=== PATIENT | female | born 1985 | race Caucasian/White ===

== ENCOUNTER → 2019-04-09 12:37 | Outpatient (POV) | payer BC, SELFPAY | PROVIDERS: Visit Provider Dermatology | DX: Z00.00 Encounter for general adult medical examination without abnormal findings (principal) ==

== ENCOUNTER 2023-04-14 13:36 | Outpatient (CLI) | payer BC, SELFPAY ==
--- NOTE | 2023-04-14 13:36 | US_ITS ---
PROCEDURE: US TRANSVAGINAL CLINICAL INDICATION: abnormal uterine bleeding post ablation COMPARISON: No exams were available for comparison FINDINGS: Transvaginal sonographic images of the pelvis were obtained. UTERUS: 8.2cm x 5.2cmx 3.8cm anteverted with a combined endometrial thickness of 6.4mm. There is a fibroid on the right side of the uterus measuring 2.1 cm x 2.0 cm x 1.9 cm. A scar is present. LEFT OVARY: 2.2cmx1.6 cmx2.0cm with a volume of 3.5ml. There is a follicle measuring 1.6 cm x 0.7 cm x 1.0 cm. RIGHT OVARY: 2.7 cmx 2.1cmx1.6 cm with a volume of 4.9ml. There is a follicle measuring 1.4 cm x 1.4 cm x 1.4 cm. Both ovaries are seen and appear normal. Doppler flow to both ovaries are seen. There is no fluid in the cul-de-sac. IMPRESSION: 1. Anteverted uterus with a thin endometrium. A 2 cm fibroid is located on the right side of the uterus within the myometrium. 2. Both ovaries are seen and appear normal. 3. No fluid in the cul-de-sac. Dictated by: Lonny Kendall MD 04/15/2023 12:37 Lonny Kendall MD in OV 04/15/2023 12:37
== END 2023-04-14 23:59 ==
LOC: RAD 13:36
PROVIDERS: PCP Pediatrics; Visit Provider Obstetrics & Gynecology
DX: N93.8 Other specified abnormal uterine and vaginal bleeding (principal)
CPT/HCPCS: 76830

== ENCOUNTER 2023-05-31 12:53 | Emergency (ER) | payer BC, SELFPAY ==
--- NOTE | 2023-05-31 13:00 | XR_ITS ---
FINAL REPORT CLINICAL HISTORY: pain after fall yesterday COMPARISON: None FINDINGS: AP, oblique, and lateral views of the left elbow were obtained. There is no prior exam for comparison. There is no acute fracture or dislocation. Joint space is preserved. There is no joint effusion or other soft tissue abnormality. IMPRESSION: No acute osseous abnormality of the left elbow. Reviewed, Interpreted and Dictated by Roberto Bhardwaj III, MD Transcribed by Margot Riley Authenticated and [facility]
--- NOTE | 2023-05-31 13:00 | XR_ITS ---
FINAL REPORT CLINICAL HISTORY: pain after fall yesterday COMPARISON: None FINDINGS: AP and lateral views of the left forearm are obtained. There is no prior exam for comparison. There is no acute osseous abnormality of the left forearm. The wrist and elbow are intact. The soft tissues appear normal. IMPRESSION: No acute osseous abnormality of the left forearm. Reviewed, Interpreted and Dictated by Roberto Bhardwaj III, MD Transcribed by Margot Riley Authenticated and . [facility]
[2023-05-31 13:30] VITALS: BP 154/89; PULSE 89; RESP 18; TEMP 36.6; O2SAT 100; BMI 25.7
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
[2023-05-31 14:28] VITALS: BP 154/89; PULSE 89; RESP 18; TEMP 36.6; O2SAT 100
== END 2023-05-31 14:28 | disposition home or self-care (01) ==
PROVIDERS: Emergency Provider Nurse Practitioner Family
DX: M25.522 Pain in left elbow (principal); M79.632 Pain in left forearm; S50.02XA Contusion of left elbow, initial encounter; S50.12XA Contusion of left forearm, initial encounter; W04.XXXA Fall while being carried or supported by other persons, initial encounter
CPT/HCPCS: 73080; 73090; 99204; 99212; G0463

== ENCOUNTER 2024-01-24 13:32 | Outpatient (CLI) | payer BC, SELFPAY ==
--- NOTE | 2024-01-24 13:33 | MM_ITS ---
PROCEDURE INFORMATION: Exam: Bilateral Screening 3D Mammography Exam date and time: 01/24/2024 1:20 PM Age: 38 years old Clinical indication: Screening examination. TECHNIQUE: Imaging protocol: Bilateral Screening tomosynthesis and 2D mammography including computer-aided detection (CAD) when performed. COMPARISON: No relevant prior studies available. FINDINGS: MAMMOGRAPHY: Breast composition: The breasts are heterogeneously dense, which may obscure small masses. Mass: None. Architectural distortion: None. Calcifications: No suspicious calcifications. Asymmetric density: None. Skin thickening: None. Axillary adenopathy: None. IMPRESSION: No mammographic evidence of malignancy. Annual screening is recommended unless otherwise clinically indicated. ASSESSMENT: BI-RADS Category 1: Negative.
== END 2024-01-24 23:59 | disposition home or self-care (01) ==
LOC: RAD 13:33
PROVIDERS: PCP Obstetrics & Gynecology; Visit Provider Obstetrics & Gynecology
DX: Z12.31 Encounter for screening mammogram for malignant neoplasm of breast (principal)
CPT/HCPCS: 77063; 77067

== ENCOUNTER 2024-04-24 12:57 | Emergency (ER) | payer BC, SELFPAY ==
[2024-04-24 14:35] VITALS: BP 130/80; PULSE 71; RESP 19; TEMP 36.7; O2SAT 99; BMI 24.0
--- NOTE | 2024-04-24 14:52 | ED_ITS ---
Discharge Plan Disposition Patient Disposition: Home, Self-Care Condition: Good Prescriptions Prescriptions: New doxycycline hyclate 100 mg capsule 100 mg PO BID Qty: 20 0RF erythromycin 5 mg/gram (0.5 %) ointment 0.5 inch ophthalmic (eye) TID Qty: 3.5 0RF Rx Instructions: apply small ribbon in right eye as directed Referrals Follow up/Referrals: Dejan Mcdowell [Primary Care Provider] - See instructions Activity Restrictions/Add. Instructions Additional Instructions/Restrictions: Apply warm compresses to eye 3-4 times daily Clean eyelid with warm water and baby shampoo Follow up with your Eye Doctor if no improvement or any worsening of symptoms Straight to ER if any life threatening symptoms Clinical Impressions Clinical Impression: Hordeolum Instructions Patient Instructions: DI for Hordeolum, Doxycycline, Erythromycin Print Language Print Language: Belarusian Discharge ED Provider: Magaly French [facility] HPI General Stated complaint: swelling/redness/pain around right eye Mode of Arrival: Ambulatory Source of Information: Patient Limitations: No Limitations Time Seen by Provider: 04/24/24 14:52 Description of Symptoms (Recalled from Triage Doc. by RN): PATIENT C/O PAIN AND SWELLING TO RIGHT EYE SINCE YESTERDAY MORNING HEENT Symptoms (Recalled from RN notes): Yes Resp Symptoms (Recalled from RN notes): No Skin Symptoms (Recalled from RN notes): No MS Symptoms (Recalled from RN notes): No Functional Status (Recalled from RN notes): WNL History of Present Illness Provider Complaint: Patient states that she has had styes in the past, states that she noticed yesterday that her right eyelid was looking red and puffy and sore States that she did not see a bump but noticed it was looking more red and puffy today worried the infection may be spreading Related Data Previous Rx's ?Medication ?Instructions ?Recorded doxycycline hyclate 100 mg capsule 100 mg PO BID #20 caps 04/24/24 erythromycin 5 mg/gram (0.5 %) eye 0.5 inch ophthalmic (eye) TID #3.5 04/24/24 ointment grams Allergies Allergy/AdvReac Type Severity Reaction Status Date / Time No Known Allergies Allergy Verified 05/31/23 14:00 Worker's Comp Is this a Worker's Comp case?: No [facility] Disclaimer: The information contained in this section may have been updated after the patient was seen, as this information can be updated by other users. 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) Travel in the last 8 weeks: None household members: spouse Have you lived/traveled outside US in past 30 days?: No Contact w/someone who lives/traveled outside US past 30 days?: No Exposure to someone with infectious disease in past 14 days?: No Do you have a fever (greater than 100.4 F or 38 C)?: No Have you tested positive for COVID-19: No Exposed to someone with COVID-19 in past 14 days?: No Do you have a sore throat?: No Do you have a cough?: No Do you have any weakness?: No Do you have any diarrhea?: No Are you experiencing any unusual bleeding?: No Do you have any muscle aches/pain?: No Do you have any abdominal pain?: No Are you experiencing loss of taste or smell?: No ROS Obtained: Yes All systems reviewed & no additional complaints except as documented and Yes Systems reviewed as appropriate & no additional complaints except as documented Constitutional Constitutional: Reports system reviewed and no additional complaints, except as documented and Reports as per HPI Eyes Eyes: Reports system reviewed and no additional complaints, except as documented, Reports as per HPI and Reports other (redness, mild swelling to right upper eyelid area ) ENT Ears, Nose, Mouth, and Throat: Reports system reviewed and no additional complaints, except as documented and Reports as per HPI Physical Exam General General appearance: alert and in no apparent distress Eye Eye exam: Present other (redness noted to right upper eyelid and side of eye, appears possibly small bump like lesion starting) Respiratory Respiratory exam: Present normal lung sounds bilaterally; Absent respiratory distress or wheezes Cardiovascular Cardiovascular exam: Present regular rate, normal rhythm and normal heart sounds Neurological Exam Neurological exam: Present alert, oriented X3 and normal gait Medical Decision Making Medical Records Screening: Per USPSTF and CDC recommendations, given the prevalence of disease in our region, it is our hospital?s policy to screen for HIV and viral Hepatitis for all patients aged 18 and over and those with ongoing risk factors. Balbir Inquiry Pt receiving controlled substance: No Balbir was queried for this patient: No Vital Signs: 04/24/24 14:35 Temperature 98.0 F Temperature Source Oral Pulse Rate [Left Brachial] 71 Respiratory Rate 19 Blood Pressure [Left Arm] 130/80 Blood Pressure Mean [Left Arm] 96 Blood Pressure Source [Left Arm] Automatic Cuff Blood Pressure Position [Left Arm] Sitting 02 Sat by Pulse Oximetry 99 Oxygen Delivery Method Room Air
[2024-04-24 15:06] VITALS: BP 130/80; PULSE 71; RESP 19; TEMP 36.7; O2SAT 99
== END 2024-04-24 15:07 | disposition home or self-care (01) ==
PROVIDERS: Emergency Provider Nurse Practitioner; PCP Pediatrics
DX: H00.013 Hordeolum externum right eye, unspecified eyelid (principal)
CPT/HCPCS: 99213; G0381

== ENCOUNTER 2024-11-09 14:19 | Outpatient (CLI) | payer BC, SELFPAY ==
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
--- OUTSIDE RECORDS SUMMARY | 2024-11-09 14:23 | XMS_ITS | Clinical Summary ---
Author Organization [facility] Address [address] [place] [address] Phone Care Team Providers Care Electronic Sales And Service Technician Name Role Phone Dejan Mcdowell MD Primary Care Provider [phone] Allergies No known active allergies Medications No known medications Active Problems Problem Noted Date Diagnosed Date S/P endometrial ablation 08/16/2013 DUB (dysfunctional uterine bleeding) 06/03/2013 Anemia 10/21/2011 Abnormal vaginal Pap smear 2010 Overview (11/16/2010): Date Procedure Result Recommendation 10/05/10 Pap Lsil Colpo 11/10/10 Colpo Lsil Repeat pap in 4 months (02/27) LGSIL (low grade squamous intraepithelial dyspla callum) 2010 Resolved Problems Problem Noted Date Diagnosed Date Resolved Date Thrombocytopenia 10/22/2011 05/13/2015 Polyhydramnios 10/10/2011 10/21/2011 Overview (10/10/2011): Twin B Dichorionic diamniotic twin 06/08/2011 10/21/2011 Immunizations Immunization Administration Dates Next Due DT 11/17/1992 DTaP 10/30/1987, 6,02/03/1984,01/03/1984, HiB, Unspecified Formulation 12/17/1985 MMR 08/19/1991,02/05/1985 OPV 08/19/1991, 7,07/10/1985,02/03/1984, Td, Unspecified Formulation 12/19/2002 Tdap 10/29/2018,10/22/2011 Surgical History Surgery Date Site/Laterality Comments COLPOSCOPY 09/2010 IUD REMOVAL SECTION 10/19/2011 - 10/20/2011 Abdomen/N/A PRIMARY SECTION - TWINS (39 WKS) Low transverse uterine incision at 2314; Surgeon: Bernardo Weber MD; Location: [facility]; Service: Gynecology WISDOM TOOTH EXTRACTION ENDOMETRIAL ABLATION 07/17/2013 N/A HYSTEROSCOPY DILATION & CURETTAGE ENDOMETRIAL ABLATION WITH NOVASURE ; Surgeon: Junior Cerrato MD; Location: [facility]; Service: Gynecology Medical History Medical History Date Comments Twin 06/08/2011 Anemia 10/21/2011 Family History Medical History Relation Name Comments Anesth Problems Neg Hx Relation Name Status Comments Father Alive Mother Social History Tobacco Use Types Packs/Day Years Used Date Smoking Tobacco: Never Smokeless Tobacco: Never Tobacco Cessation:Counseling Given: No Alcohol Use Standard Drinks/Week Comments No 0 (1 standard drink = 0.6 oz pur e alcohol) PHQ-2 Answer Date Recorded PHQ-2 Total Score 0 08/11/2023 Sexually Active Control Partners Comments Yes Male Comments No Sex and Gender Information Value Date Recorded Sex Assigned at Not on file Legal Sex Female 5:17 AM EDT Gender Identity Not on file Sexual Orientation Not on file Obstetrics History Para Term AB IAB SAB Ectopic Multiple Livin g Live Births 1 1 1 0 0 0 0 0 1 2 2 Date Outcome GA Total Labor Labor/2nd/3rd Weight Sex Type Anes PTL Nela A1 A5 Name Clin 012 Term 37w 2d 5 lb 11.4 oz (2.591 kg) F CS-LT ranv Spinal N Livin g 8 9 VOET, LESLEY BABY A Rafi James MD Delivery Location:[facility] 012 Term 37w 2d 6 lb 8.8 oz (2.97 kg) F CS-LT ranv Spinal N Livin g 8 9 VOET, LESLEY BABY B Rafi James MD Delivery Location:[facility] Last Filed Vital Signs Vital Sign Reading Time Taken Comments Blood Pressure 118/76 08/11/2023 1:03 PM EDT Pulse 84 08/11/2023 1:03 PM EDT Temperature 36.6 C (97.8 F) 08/11/2023 1:03 PM EDT Respiratory Rate 18 08/11/2023 1:03 PM EDT Oxygen Saturation 99% 08/11/2023 1:03 PM EDT Inhaled Oxygen Concentration - - Weight 64.9 kg (143 lb) 08/11/2023 1:03 PM EDT Height 162.6 cm (5' 4 ) 08/11/2023 1:03 PM EDT Body Mass Index 24.55 08/11/2023 1:03 PM EDT Plan of Treatment Health Maintenance Due Date Last Done Comments Hepatitis B Vaccine (1 of 3 - 19+ 3-dose series) 10/03/2002 HPV/Pap Cotest 10/03/2013 Cervical Cancer Screening 01/19/2020 Pap Smear 01/19/2020 01/18/2017, 07/2015 (Not Entered), 06/23/2015, Additional history exists Breast Cancer Screening 2023 COVID-19 Vaccine ( season) 2023 Annual Wellness Exam 08/10/2024 08/11/2023, 06/23/2015 (Not Entered) Influenza Vaccine (#1) 2024 7 (Declined), 03/24/2014 (Declined) DTaP/TDaP/Td (8 - Td or Tdap) 10/29/2028 10/29/2018, 10/22/2011, 12/19/2002, Additional history exists Meningococcal B Vaccine Aged Out No l onger eligible based on patient's age to complete this topic Pneumococcal Vaccine 0-49 Aged Out No longer eligible based on patient's age to complete this topic Goals Goal Patient Goal Type Associated Problems Recent Progress Patient-Stated? Author Maintain a healthy diet, exercise regularly and maintain an ideal body weight General No Abril Duarte RMA Procedures Procedure Name Priority Date/Time Associated Diagnosis Comments ANDROID DEVELOPER CYTOLOGY REQUEST (PAP ONLY) Routine 01/18/2017 11:34 AM EDT Well woman exam with routine gynecological exam Preventative health care from Last 3 Months or Most Recently Relevant to Health Maintenance Results * ANDROID DEVELOPER CYTOLOGY REQUEST (PAP ONLY) (01/18/2017 11:34 AM EDT) CASE REPORT Gynecologic Cytology Report Case: [id number] Authorizing Provider: Lucas Shaw MD Collected: 01/18/2017 1134 Ordering Location: [facility] Crit Received: 01/18/2017 1640 First Screen: Diandra Lackey, CT Rescreen: Bonnie Narayanan CT Specimen: LIQUID-BASED PAP - CERVICAL/ENDOCERV ICAL, Cervix, Endocervical 01/20/2017 9:45 AM EDT [facility] PAP FINAL DIAGNOSIS Negative for intraepithelial lesion or malignancy 01/20/2017 9:45 AM EDT [facility] at 0945 EDT PAP SMEAR ADEQUACY Satisfactory for evaluation 01/20/2017 9:45 AM EDT [facility] ENDOCERVICAL T-ZONE Transformation zone present 01/20/2017 9:45 AM EDT [facility] EMBEDDED IMAGES 9:45 AM EDT [facility] PAP DISCLAIMER The Pap Smear is a screening test that aids in the detection of cervical cancer and cancer precursors. Both false positive and false negative results can occur. The test should be used at regular intervals, and positive results should be confirmed before definitive therapy. 01/20/2017 9:45 AM EDT [facility] ENDOCERVICAL STRUCTURE / Unknown 01/18/2017 11:34 AM EDT 01/18/2017 4:40 PM EDT us Lucas Shaw MD CYTOLOGY ORDERABLES Final Re sult [facility] [address] [place] [address] from Last 3 Months or Most Recently Relevant to Health Maintenance Insurance [employer] PPO Advance Directives For more information, please contact: [phone] * Full Code (Latest Code Status on File) Date Activated Date Inactivated Comments 10/19/2011 9:41 PM 10/22/2011 8:34 PM Care Teams Electronic Sales And Service Technician Relationship Specialty Start Date End Date Dejan Mcdowell MD [address] [place] [address] PCP - General Internal Medicine 08/11/23
== END 2024-11-09 23:59 | disposition home or self-care (01) ==
LOC: RAD 14:21
PROVIDERS: PCP Pediatrics; Visit Provider Student in an Organized Health Care Education/Training Program
DX: S49.91XA Unspecified injury of right shoulder and upper arm, initial encounter (principal); R93.6 Abnormal findings on diagnostic imaging of limbs
CPT/HCPCS: 73060